=== PATIENT | female | born 1960 | race Caucasian/White ===

== ENCOUNTER 2017-08-24 22:48 | Inpatient (IN) | payer OTHER ==
[~2017-08-24] VITALS: Ht 165.1 cm; Wt 81.6 kg
[2017-08-24] MEDS ORDERED: TRULICITY1.5 MG/0.5 IM (23:05)
[2017-08-24] MEDS ORDERED: TRESIBA FL100 UNIT/1 SUBQ (23:06)
[2017-08-24] MEDS ORDERED: SULINDAC 200MG200 M1 PO (23:07)
[2017-08-24] MEDS ORDERED: ULORIC80 MG PO (23:07)
[2017-08-24] MEDS ORDERED: DICLOFENAC SODI75 MG PO (23:08)
[2017-08-24] MEDS ORDERED: ZANAFLEX4 MG PO (23:08)
[2017-08-24] MEDS ORDERED: MOBIC15 MG PO (23:09)
[2017-08-24] MEDS ORDERED: RESTORIL15 MG PO (23:09)
[2017-08-24] MEDS ORDERED: VITAMIN B-12500 MCG PO (23:10)
[2017-08-24] MEDS ORDERED: PROAIR HFA8.5 GM INH (23:30)
[2017-08-24] MEDS ORDERED: TUSSIONEX PENN115 ML PO (23:30)
[2017-08-24] MEDS ORDERED: OSELB75 PO (23:47)
[2017-08-25] VITALS (8 sets, daily range): BP systolic 98–119; BP diastolic 40–65
[2017-08-25 01:41] LABS: ABSOLUTE NEUTROPHILS 3.3 thou/uL (1.4-8.2); BASOPHILS 0.3 % (0.0-2.0); EOSINOPHILS 1.9 % (0.0-3.0); HEMATOCRIT 38.7 % (37.0-47.0); HEMOGLOBIN 13.4 gm/dL (12.0-15.0); LYMPHOCYTES 24.8 % (24.0-44.0); MCH 32.2 pg (26.0-34.0); MCHC 34.6 g/dL (28.0-37.0); MCV 93.1 fL (80.0-100.0); MONOCYTES 9.8 % (1.0-8.0); PLATELET COUNT 138 thou/uL (150-400); POLYS 63.2 % (36.0-66.0); RBC 4.15 mil/uL (4.20-5.00); RDW 13.1 % (10.5-14.5); WBC 5.2 thou/uL (4.0-11.0)
[2017-08-25 01:56] LABS: ALBUMIN 3.4 g/dL (3.4-5.0); ANION GAP 12 mmol/L (7-16); BUN 20 mg/dL (7-18); CALCIUM 8.8 mg/dL (8.5-10.1); CHLORIDE 102 mmol/L (98-107); CO2 25 mmol/L (21-32); CREATININE 1.4 mg/dL (0.6-1.0); DIRECT BILIRUBIN < 0.1 mg/dL (<0.1-0.3); GLUCOSE 163 mg/dL (74-106); POTASSIUM 3.3 mmol/L (3.5-5.1); SGOT 17 U/L (15-37); SGPT 38 U/L (30-65); SODIUM 139 mmol/L (136-145); TOTAL BILIRUBIN 0.4 mg/dL (<0.1-1.0); TOTAL PROTEIN 6.2 g/dL (6.4-8.2)
[2017-08-25 04:37] LABS: URINE BILIRUBIN NEGATIVE (Negative); URINE BLOOD NEGATIVE (Negative); URINE CLARITY CLEAR; URINE COLOR YELLOW; URINE GLUCOSE-RANDOM* NEGATIVE (Negative); URINE KETONES NEGATIVE (Negative); URINE LEUKOCYTES-REFLEX NEGATIVE (Negative); URINE NITRITE-REFLEX NEGATIVE (Negative); URINE PROTEIN (DIPSTICK) NEGATIVE (Negative); URINE SPECIFIC GRAVITY <= 1.005 (1.005-1.035); URINE UROBILINOGEN 0.2 E.U./dl (0.2-1.0)
[2017-08-25 05:11] LABS: HEMATOCRIT 31.9 % (37.0-47.0); HEMOGLOBIN 11.2 gm/dL (12.0-15.0); MCH 32.5 pg (26.0-34.0); MCHC 35.1 g/dL (28.0-37.0); MCV 92.5 fL (80.0-100.0); RBC 3.45 mil/uL (4.20-5.00); RDW 13.3 % (10.5-14.5); WBC 5.6 thou/uL (4.0-11.0)
[2017-08-25 05:28] LABS: CALCIUM 7.5 mg/dL (8.5-10.1); CREATININE 1.2 mg/dL (0.6-1.0); MAGNESIUM 1.3 mg/dL (1.8-2.4); POTASSIUM 4.2 mmol/L (3.5-5.1)
[2017-08-26 00:28] VITALS: BP 123/62
[2017-08-26 04:12] LABS: HEMATOCRIT 32.9 % (37.0-47.0); HEMOGLOBIN 11.4 gm/dL (12.0-15.0); MCH 32.3 pg (26.0-34.0); MCHC 34.8 g/dL (28.0-37.0); MCV 92.9 fL (80.0-100.0); PLATELET COUNT 102 thou/uL (150-400); RBC 3.54 mil/uL (4.20-5.00); RDW 13.3 % (10.5-14.5); WBC 3.7 thou/uL (4.0-11.0)
[2017-08-26 04:19] LABS: CALCIUM 7.9 mg/dL (8.5-10.1); POTASSIUM 4.6 mmol/L (3.5-5.1)
[2017-08-26 05:16] VITALS: BP 126/72
[2017-08-26 07:25] VITALS: BP 127/52
[2017-08-26 11:22] LABS: ABSOLUTE NEUTROPHILS 2.1 thou/uL (1.4-8.2)
[2017-08-26 11:23] LABS: ANISOCYTOSIS SLIGHT
[2017-08-26 11:45] VITALS: BP 143/70
[2017-08-26] MEDS ORDERED: OSELB75 PO (15:44)
[2017-08-26] MEDS ORDERED: AUGMENTIN400 MG/53 PO (15:47)
[2017-08-26 15:56] VITALS: BP 126/72
[2017-08-26 16:00] VITALS: BP 120/64
== END 2017-08-26 16:43 | disposition home or self-care (01) | DRG 871 ==
LOC: ER 22:48 → EROBS 08-25 00:44 → 2N 08-25 02:36
PROVIDERS: Emergency Medicine; Hospitalist; Nurse Practitioner Acute Care
DX: A41.9 Sepsis, unspecified organism (principal); R65.21 Severe sepsis with septic shock; N17.9 Acute kidney failure, unspecified; D61.818 Other pancytopenia; J11.1 Influenza due to unidentified influenza virus with other respiratory manifestations; M06.9 Rheumatoid arthritis, unspecified; N18.9 Chronic kidney disease, unspecified; E87.6 Hypokalemia; M10.9 Gout, unspecified; E11.22 Type 2 diabetes mellitus with diabetic chronic kidney disease; R51 Headache; I95.9 Hypotension, unspecified; E86.0 Dehydration; Z79.899 Other long term (current) drug therapy; Z82.49 Family history of ischemic heart disease and other diseases of the circulatory system; Z83.3 Family history of diabetes mellitus; Z90.710 Acquired absence of both cervix and uterus; Z88.8 Allergy status to other drugs, medicaments and biological substances
CPT/HCPCS: 10081